=== PATIENT | male | born 2000 | race Caucasian/White ===

== ENCOUNTER → 2018-09-12 18:11 | Emergency (ER) | payer BC, OTHER ==
[~2018-09-12 18:11] MED LIST: Ondansetron ODT TAB* 4 MG PO ONE; Tamsulosin CAP* 0.4 MG PO ONE; oxyCODONE/Acetamin 5/325 MG* TAB PO ONE
[2018-09-12 19:05] LABS: Urine Appearance Cloudy; Urine Bacteria Absent (Absent); Urine Bilirubin Negative (Negative); Urine Blood 3+ (Negative); Urine Color Straw; Urine Glucose Negative (Negative); Urine Ketones Negative (Negative); Urine Nitrite Negative (Negative); Urine Protein Negative (Negative); Urine Red Blood Cell 3+(>10/hpf) (Absent); Urine Squamous Epithelial Cell Present (Absent); Urine Urobilinogen Negative (Negative); Urine White Blood Cell Trace(0-5/hpf) (Absent)
[2018-09-12 19:42] LABS: ABS Basophils 0.1 10^3/ul (0-0.2); ABS Eosinophils 0.3 10^3/ul (0-0.6); ABS Lymphocytes 3.3 10^3/ul (1.0-4.8); ABS Monocytes 0.6 10^3/ul (0-0.8); ABS Neutrophils 5.5 10^3/ul (1.5-7.7); Eosinophil % 3.1 %; Hematocrit 48 % (42-52); Hemoglobin 16.5 g/dL (14.0-18.0); Lymphocyte % 33.8 %; Mean Corpuscular HGB Conc 34 g/dL (31-36); Mean Corpuscular Hemoglobin 29 pg (27-31); Mean Corpuscular Volume 83 fL (80-94); Mean Platelet Volume 8.7 fL (7.4-10.4); Nucleated Red Blood Cells % 0.2; Platelet Count 199 10^3/uL (150-450); Red Blood Count 5.77 10^6 /uL (4.18-5.48); Red Cell Distribution Width 14 % (10.5-15); White Blood Count 9.7 10^3/uL (3.5-10.8)
[2018-09-12 20:00] LABS: Albumin 4.5 g/dL (3.2-5.2); Albumin/Globulin Ratio 1.5 (1-3); BUN/Creatinine Ratio 11.9 (8-20); Calcium 9.7 mg/dL (8.6-10.3); EGFR Non-African American 94.2 (>60); Potassium 4.5 mmol/L (3.5-5.0); Total Bilirubin 0.3 mg/dL (0.2-1.0); Total Protein 7.5 g/dL (6.4-8.9)
--- NOTE | 2018-09-12 21:32 | ED ---
Abdominal Pain/Male - HPI Summary HPI Summary: 18 year old M presenting to [facility] accompanied by mother with a chief complaint of sharp, intermittent right sided flank pain since 09/12/18. The patient rates the pain 8/10 in severity. Symptoms aggravated by nothing. Symptoms alleviated by nothing. Patient reports hematuria and dark urine. Patient denies nausea, vomiting, abdominal pain, dysuria. Patient woke up on 09/08/18 with lower back pain. He treated pain with ibuprofen. He noted dark urine. Patient took ibuprofen 400 mg this morning with no relief. No hx kidney stones. Patient has no past medical history. Mother reports that maternal grandfather had hx kidney stones. Vital signs at triage: HR 94 bpm, BP 135/80, O2 sat 98% - History of Current Complaint Chief Complaint: EDFlankPain Stated Complaint: BACK PAIN/BLOOD IN URINE PER PT Time Seen by Provider: 09/12/18 21:21 Hx Obtained From: Patient, Family/Associate Brand Manager - Mother Onset/Duration: Lasting Days, Still Present Timing: Intermittent Severity Initially: Moderate Severity Currently: Severe Pain Intensity: 8 Pain Scale Used: 0-10 Numeric Location: Flank - right Radiates: No Character: Sharp Aggravating Factor(s): Nothing Alleviating Factor(s): Nothing Associated Signs And Symptoms: Positive: Negative - nausea, vomiting, abdominal pain, dysuria, Other - hematuria and dark urine - Allergies/Home Medications Allergies/Adverse Reactions: Allergies Allergy/AdvReac Type Severity Reaction Status Date / Time No Known Allergies Allergy Verified 09/12/18 18:17 Home Medications: Home Medications Ibuprofen 400 mg PO Q6H PRN 09/12/18 [History Confirmed 09/12/18] PMH/Surg Hx/FS Hx/Imm Hx Previously Healthy: Yes Endocrine/Hematology History: Denies: Hx Anticoagulant Therapy, Hx Blood Disorders, Hx Blood Transfusions, Hx Bone Marrow Disease, Hx Diabetes, Hx Systemic Lupus Erythematosus, Hx Sickle Cell Disease, Hx Thyroid Disease, Hx Anemia, Hx Unexplained Bleeding, Other Endocrine/Hematological Disorders Cardiovascular History: Denies: Hx Aneurysm, Hx Angina, Hx Angioplasty, Hx Atrial Fibrillation, Hx Auto Implanted Cardiovert Defib, Hx Cardiac Arrest, Hx Cardiomegaly, Hx Congenital Heart Disease, Hx Congestive Heart Failure, Hx Coronary Artery Disease, Hx Deep Vein Thrombosis, Hx Embolism, Hx Hypercholesterolemia, Hx Hypotension, Hx Hypertension, Hx Myocardial Infarction, Hx Pacemaker/ICD, Hx Peripheral Vascular Disease, Hx Rheumatic Fever, Hx Syncope, Hx Valvular Heart Disease, Other Cardiovascular Problems/Disorders Respiratory History: Denies: Hx Asthma, Hx Bronchopulmonary Dysplasia, Hx Chronic Bronchitis, Hx Chronic Obstructive Pulmonary Disease (COPD), Hx Cystic Fibrosis, Hx Lung Cancer , Hx Pleural Effusion, Hx Pneumonia, Hx Pulmonary Edema, Hx Pulmonary Embolism, Hx Seasonal Allergies, Hx Sleep Apnea, Other Respiratory Problems/Disorders GI History: Denies: Hx Cirrhosis, Hx Crohn's Disease, Hx Diverticulosis, Hx Gall Bladder Disease, Hx Gastroesophageal Reflux Disease, Hx Gastrointestinal Bleed, Hx Hiatal Hernia, Hx Irritable Bowel, Hx Jaundice, Hx Obstructive Bowel, Hx Ileostomy, Hx Pyloric Stenosis, Hx Ulcer, Hx Urosepsis, Other GI Disorders History: Denies: Hx Acute Renal Failure, Hx Benign Prostatic Hyperplasia, Hx Chronic Renal Failure, Hx Dialysis, Hx Kidney Infection, Hx Kidney Stones, Hx Renal Disease, Other Problems/Disorders Sensory History: Denies: Hx Cataracts, Hx Contacts or Glasses, Hx Eye Injury, Hx Eye Prosthesis, Hx Glaucoma, Hx Legally Blind, Hx Macular Degeneration, Hx Vision Problem, Hx Deafness, Hx Hearing Aid, Hx Hearing Problem, Other Sensory Impairments Opthamlomology History: Denies: Hx Cataracts, Hx Contacts or Glasses, Hx Eye Injury, Hx Eye Prosthesis, Hx Glaucoma, Hx Legally Blind, Hx Macular Degeneration, Hx Vision Problem, Other Sensory Impairments Psychiatric History: Denies: Hx Anxiety, Hx Attention Deficit Hyperactivity Disorder, Hx Autism, Hx Eating Disorder, Hx Oppositional [place] Disorder, Hx Depression, Hx Panic Disorder, Hx Post Traumatic Stress Disorder, Hx Inpatient Treatment, Hx Community Mental Health Tx, Hx Schizophrenia, Hx Bipolar Disorder, Hx Suicide Attempt, Hx of Violent Episodes Against Others, Hx Substance Abuse, Other Psychiatric Issues/Disorders - Surgical History Surgery Procedure, Year, and Place: tonsils Infectious Disease History: No Infectious Disease History: Denies: Hx of Known/Suspected MRSA, Traveled Outside the US in Last 30 Days - Family History Known Family History: Positive: Other - Maternal grandfather has hx kidney stones - Social History Lives: With Family Alcohol Use: None Hx Substance Use: No Substance Use Type: Reports: None Hx Tobacco Use: No Smoking Status (MU): Never Smoked Tobacco Have You Smoked in the Last Year: No Review of Systems Constitutional: Negative Cardiovascular: Negative Respiratory: Negative Negative: Abdominal Pain, Vomiting, Nausea Positive: flank pain - right, hematuria, other - dark urine. Negative: dysuria Musculoskeletal: Negative Skin: Negative Neurological: Negative Psychological: Normal All Other Systems Reviewed And Are Negative: Yes Physical Exam - Summary Physical Exam Summary: Appearance: Well-appearing, moderate pain distress, well-nourished Skin: Warm, color reflects adequate perfusion, dry Head: Normal Head/Face inspection, atraumatic Eyes: Conjunctiva clear ENT: Normal inspection Neck: Supple, no nodes, no JVD Respiratory: Lungs clear, normal breath sounds, no respiratory distress Cardio: RRR, No murmur, pulses normal, brisk capillary refill Abdomen: Soft, nontender. Right flank pain, right CVAT Bowel sounds: Present Musculoskeletal: Strength Intact/ROM intact, no calf tenderness, no edema. Psychological: Normal Neuro: Alert, muscle tone normal, no focal deficit Triage Information Reviewed: Yes Vital Signs On Initial Exam: Initial Vitals Temp Pulse Resp BP Pulse Ox 98.9 F 94 16 135/80 98 09/12/18 18:13 09/12/18 18:13 09/12/18 18:13 09/12/18 18:13 09/12/18 18:13 Vital Signs Reviewed: Yes Diagnostics - Vital Signs Vital Signs Temp Pulse Resp BP Pulse Ox 09/12/18 20:16 98.8 F 79 16 132/80 99 09/12/18 20:15 98.8 F 79 16 132/80 99 09/12/18 18:13 98.9 F 94 16 135/80 98 - Laboratory Lab Results: Lab Results 09/12/18 09/12/18 09/12/18 Range/Units 18:41 19:34 19:34 WBC 9.7 (3.5-10.8) 10^3/uL RBC 5.77 H (4.18-5.48) 10^6 /uL Hgb 16.5 (14.0-18.0) g/dL Hct 48 (42-52) % MCV 83 (80-94) fL MCH 29 (27-31) pg MCHC 34 (31-36) g/dL RDW 14 (10.5-15) % Plt Count 199 (150-450) 10^3/uL MPV 8.7 (7.4-10.4) fL Neut % (Auto) 56.8 % Lymph % (Auto) 33.8 % [place] % (Auto) 5.7 % Eos % (Auto) 3.1 % Baso % (Auto) 0.6 % Absolute Neuts (auto) 5.5 (1.5-7.7) 10^3/ul Absolute Lymphs (auto) 3.3 (1.0-4.8) 10^3/ul Absolute Monos (auto) 0.6 (0-0.8) 10^3/ul Absolute Eos (auto) 0.3 (0-0.6) 10^3/ul Absolute Basos (auto) 0.1 (0-0.2) 10^3/ul Absolute Nucleated RBC 0.0 10^3/ul Nucleated RBC % 0.2 Sodium 137 (135-145) mmol/L Potassium 4.5 (3.5-5.0) mmol/L Chloride 103 (101-111) mmol/L Carbon Dioxide 30 (22-32) mmol/L Anion Gap 4 (2-11) mmol/L BUN 12 (6-24) mg/dL Creatinine 1.01 (0.67-1.17) mg/dL Est GFR ( Amer) 114.0 (>60) Est GFR (Non-Af Amer) 94.2 (>60) BUN/Creatinine Ratio 11.9 (8-20) Glucose 93 (70-100) mg/dL Calcium 9.7 (8.6-10.3) mg/dL Total Bilirubin 0.30 (0.2-1.0) mg/dL AST 51 H (13-39) U/L ALT 99 H (7-52) U/L Alkaline Phosphatase 81 (34-104) U/L Total Protein 7.5 (6.4-8.9) g/dL Albumin 4.5 (3.2-5.2) g/dL Globulin 3.0 (2-4) g/dL Albumin/Globulin Ratio 1.5 (1-3) Urine Color Straw Urine Appearance Cloudy Urine pH 7.0 (5-9) Ur Specific [place] 1.010 (1.010-1.030) Urine Protein Negative (Negative) Urine Ketones Negative (Negative) Urine Blood 3+ A (Negative) Urine Nitrate Negative (Negative) Urine Bilirubin Negative (Negative) Urine Urobilinogen Negative (Negative) Ur Leukocyte Esterase Negative (Negative) Urine WBC (Auto) Trace(0-5/hpf) (Absent) Urine RBC (Auto) 3+(>10/hpf) A (Absent) Ur Squamous Epith Cells Present A (Absent) Urine Bacteria Absent (Absent) Urine Glucose Negative (Negative) Result Diagrams: 09/12/18 19:34 09/12/18 19:34 Lab Statement: Any lab studies that have been ordered have been reviewed, and results considered in the medical decision making process. - CT Abd/Pel CT Interpretation Completed By: Radiologist Summary of CT Findings: 1. Minimally obstructing 7 mm calculus right UPJ. 2. Mild hepatic steatosis (5-14% fat fraction). ED physician has reviewed this report. Abdominal Pain Male Course/Dx - Course Course Of Treatment: 18 yo M with right flank pain, gross hematuria, no prior hx kidney stones, dx with right 7mm stone minimally obstructing at UPJ. Nurses notes reviewed. CT Abd/Pel shows 1. Minimally obstructing 7 mm calculus right UPJ. 2. Mild hepatic steatosis (5-14% fat fraction). Bloodwork is unremarkable except for slightly elevated AST (51) and ALT (99), unrelated to kidney stone dx , may be related to hepatosteatosis. In ED course, patient was given Percocet, Zofran, and Flomax with relief. Spoke with Dr. Wang, urology, who agrees with medications and discharge plan, but if patient has worsening pain then he must come back to ED. If patient does not have to return to ED, then patient can be seen in office on 09/15/18. Patient feels better and would like to go home. Patient will be discharged home with prescription for Zofran, Percocet, and Flomax. He was instructed to follow up with the [facility] in [address] Wang in 3 days. Patient was instructed to return to ED for new or worsening symptoms. Patient understands and is agreeable to discharge plan. - Diagnoses Differential Diagnosis/HQI/PQRI: Appendicitis, Gall Bladder Disease, Pancreatitis, Renal Colic, Ureteral Stone, Urinary Tract Infection Provider Diagnoses: Renal calculus, right, Gross hematuria - Provider Notifications Discussed Care Of Patient With: Justin Wang Time Discussed With Above Provider: 21:34 Instructed by Provider To: Other - Dr. Wang, urology, who agrees with medications and discharge plan, but if patient has worsening pain then he must come back to ED. If patient does not have to return to ED, then patient can be seen in office on 09/15/18. Discharge - Sign-Out/Discharge Documenting (check all that apply): Patient Departure - Discharge Patient Received Moderate/Deep Sedation with Procedure: No - Discharge Plan Condition: Stable Disposition: HOME Prescriptions: Ondansetron ODT TAB* [Zofran 4 MG Odt TAB*] 4 mg PO Q8H PRN #20 tab.odt PRN Reason: Nausea oxyCODONE/Acetamin 5/325 MG* [Percocet 5/325 TAB*] 1 tab PO Q6H PRN #20 tab MDD 4 PRN Reason: Pain Tamsulosin CAP* [Flomax CAP*] 0.4 mg PO DAILY #20 cap Patient Education Materials: Kidney Stones (ED), Hematuria (ED) Forms: *Work Release Referrals: [facility] [Outside] - 2 Days Justin Wang MD [Medical Doctor] - 3 Days Additional Instructions: We spoke to Dr. Wang the urologist, kidney stone specialist, rosemary. He states that you may go home with pain medication and a medication called tamsulosin which sometimes helps kidney stones pass. You should drink plenty of fluids and strain your urine. If your pain is uncontrolled, if you have a fever, or you are vomiting this weekend, you need to return directly to the [facility] ER. If you are well over the weekend continue taking your medication, and call Dr. Wang's office on Saturday to make an appointment to be seen. You may need a procedure to help this kidney stone pass, but Dr. Wang will asses this further as your course progresses. Return to the emergency department for new or worsening symptoms. - Billing Disposition and Condition Condition: STABLE Disposition: Home - Attestation Statements Document Initiated by Jeyson: Yes Documenting Scribe: Alexandra Lomeli Provider For Whom Jeyson is Documenting (Include Credential): Vivian Stone MD Scribe Attestation: Alexandra Zepeda, scribed for Vivian Stone MD on 09/14/18 at 8107. Scribe Documentation Reviewed: Yes Provider Attestation: The documentation as recorded by the Alexandra horton accurately reflects the service I personally performed and the decisions made by me, Vivian Stone MD Status of Jeyson Document: Viewed
[2018-09-12 21:56] VITALS: BP 129/76
== END | disposition home or self-care (01) ==
LOC: ED 18:11
DX: N20.0 Calculus of kidney (principal); N20.1 Calculus of ureter; K76.0 Fatty (change of) liver, not elsewhere classified; R31.0 Gross hematuria
CPT/HCPCS: 36415; 74176; 80053; 81003; 81015; 85025; 87086; 99282; A9270-GY

== ENCOUNTER 2018-09-25 05:54 | Emergency (ER) | payer BC ==
[2018-09-25] MEDS ORDERED: Ondansetron INJ* 2 MG/ML VIAL IV ONE (06:10)
[2018-09-25] MEDS ORDERED: NS 0.9% 1000 ML** 1,000 ML IV ONE (06:10)
[2018-09-25] MEDS ORDERED: Ketorolac INJ* 30 MG/ML 1 ML VIAL IV PUSH ONE (06:10)
--- NOTE | 2018-09-25 06:15 | ED ---
Back Pain - HPI Summary HPI Summary: Pt. is a 18 y.o male who presents to the ER for worsening right flank pain with a known 7mm ureteral calculus. Pt. seen in ED 09/12/18 with right flank pain and dx with stone. Pt. has been taking percocet and flomax. Pt. is following with urology, Dr. Wang. Pt. states that Dr. Wang plans on stent placement once stone moves lower. Pt. states he has been doing well at home with pain until today. Pain today is 7/10. Pt. took percocet [employer]. Pt. denies fever, chills , dysuria, vomiting. No other past medical hx. Sxs are moderate in severity. No current modifying factors. - History of Current Complaint Chief Complaint: EDFlankPain Stated Complaint: FLANK PAIN PER PT Time Seen by Provider: 09/25/18 06:02 Hx Obtained From: Patient Pain Intensity: 7 - Allergies/Home Medications Allergies/Adverse Reactions: Allergies Allergy/AdvReac Type Severity Reaction Status Date / Time No Known Allergies Allergy Verified 09/25/18 06:00 PMH/Surg Hx/FS Hx/Imm Hx Previously Healthy: Yes Endocrine/Hematology History: Denies: Hx Anticoagulant Therapy, Hx Blood Disorders, Hx Blood Transfusions, Hx Bone Marrow Disease, Hx Diabetes, Hx Systemic Lupus Erythematosus, Hx Sickle Cell Disease, Hx Thyroid Disease, Hx Anemia, Hx Unexplained Bleeding, Other Endocrine/Hematological Disorders Cardiovascular History: Denies: Hx Aneurysm, Hx Angina, Hx Angioplasty, Hx Atrial Fibrillation, Hx Auto Implanted Cardiovert Defib, Hx Cardiac Arrest, Hx Cardiomegaly, Hx Congenital Heart Disease, Hx Congestive Heart Failure, Hx Coronary Artery Disease, Hx Deep Vein Thrombosis, Hx Embolism, Hx Hypercholesterolemia, Hx Hypotension, Hx Hypertension, Hx Myocardial Infarction, Hx Pacemaker/ICD, Hx Peripheral Vascular Disease, Hx Rheumatic Fever, Hx Syncope, Hx Valvular Heart Disease, Other Cardiovascular Problems/Disorders Respiratory History: Denies: Hx Asthma, Hx Bronchopulmonary Dysplasia, Hx Chronic Bronchitis, Hx Chronic Obstructive Pulmonary Disease (COPD), Hx Cystic Fibrosis, Hx Lung Cancer , Hx Pleural Effusion, Hx Pneumonia, Hx Pulmonary Edema, Hx Pulmonary Embolism, Hx Seasonal Allergies, Hx Sleep Apnea, Other Respiratory Problems/Disorders GI History: Denies: Hx Cirrhosis, Hx Crohn's Disease, Hx Diverticulosis, Hx Gall Bladder Disease, Hx Gastroesophageal Reflux Disease, Hx Gastrointestinal Bleed, Hx Hiatal Hernia, Hx Irritable Bowel, Hx Jaundice, Hx Obstructive Bowel, Hx Ileostomy, Hx Pyloric Stenosis, Hx Ulcer, Hx Urosepsis, Other GI Disorders History: Denies: Hx Acute Renal Failure, Hx Benign Prostatic Hyperplasia, Hx Chronic Renal Failure, Hx Dialysis, Hx Kidney Infection, Hx Kidney Stones, Hx Renal Disease, Other Problems/Disorders Sensory History: Denies: Hx Cataracts, Hx Contacts or Glasses, Hx Eye Injury, Hx Eye Prosthesis, Hx Glaucoma, Hx Legally Blind, Hx Macular Degeneration, Hx Vision Problem, Hx Deafness, Hx Hearing Aid, Hx Hearing Problem, Other Sensory Impairments Opthamlomology History: Denies: Hx Cataracts, Hx Contacts or Glasses, Hx Eye Injury, Hx Eye Prosthesis, Hx Glaucoma, Hx Legally Blind, Hx Macular Degeneration, Hx Vision Problem, Other Sensory Impairments Psychiatric History: Denies: Hx Anxiety, Hx Attention Deficit Hyperactivity Disorder, Hx Autism, Hx Eating Disorder, Hx Oppositional [place] Disorder, Hx Depression, Hx Panic Disorder, Hx Post Traumatic Stress Disorder, Hx Inpatient Treatment, Hx Community Mental Health Tx, Hx Schizophrenia, Hx Bipolar Disorder, Hx Suicide Attempt, Hx of Violent Episodes Against Others, Hx Substance Abuse, Other Psychiatric Issues/Disorders - Surgical History Surgery Procedure, Year, and Place: tonsils - Immunization History Date of Tetanus Vaccine: 2 YEARS AGO Infectious Disease History: No Infectious Disease History: Denies: Hx of Known/Suspected MRSA, Traveled Outside the [place] in Last 30 Days - Family History Known Family History: Positive: None, Other - Maternal grandfather has hx kidney stones, Non-Contributory - Social History Occupation: Unemployed Lives: With Family Alcohol Use: None Hx Substance Use: No Substance Use Type: Reports: None Hx Tobacco Use: No Smoking Status (MU): Never Smoked Tobacco Have You Smoked in the Last Year: No Review of Systems Constitutional: Negative Negative: Fever, Chills Positive: Abdominal Pain. Negative: Vomiting, Diarrhea, Nausea Positive: flank pain. Negative: dysuria All Other Systems Reviewed And Are Negative: Yes Physical Exam Triage Information Reviewed: Yes Vital Signs On Initial Exam: Initial Vitals Temp Pulse Resp BP Pulse Ox 98 F 75 16 121/63 99 09/25/18 05:56 09/25/18 05:56 09/25/18 05:56 09/25/18 05:56 09/25/18 05:56 Vital Signs Reviewed: Yes Appearance: Positive: Well-Appearing - Pt. sitting up in bed in NAD. Appears uncomfortable but nontoxic. Mother present. Skin: Positive: Warm, Dry Head/Face: Positive: Normal Head/Face Inspection Eyes: Positive: Normal, EOMI, RONEY Neck: Positive: Supple Respiratory/Lung Sounds: Positive: Clear to Auscultation, Breath Sounds Present Cardiovascular: Positive: Normal, RRR Abdomen Description: Positive: Other: - Mild tenderness RLQ without rebound or guarding. Right CVA tenderness. Neurological: Positive: Normal, CN Intact II-III Psychiatric: Positive: Affect/Mood Appropriate Diagnostics - Vital Signs Vital Signs Temp Pulse Resp BP Pulse Ox 09/25/18 05:56 98 F 75 16 121/63 99 - Laboratory Result Diagrams: 09/25/18 06:27 09/25/18 06:27 Lab Statement: Any lab studies that have been ordered have been reviewed, and results considered in the medical decision making process. Back Pain Course/Dx - Course Course Of Treatment: Pt. presenting for increased pain with known right urolithiasis. He is afebrile. Pt. given a liter of NSS and toradol. Labs and u/ a negative other than RBCs. Case discussed with oncall urology, Dr. Peoples, who recommended repeat KUB. KUB shows 5mm proximal stone. Pt. is pain free in ER. Dr. Peoples reviewed xray and feels pt. may be able to pass stone. He recommends out pt. f.u vs stent placement today and lithotripsy 10/06 when machine is at [place]. Discussed options with pt. and he would like to go home. He has an apt. with Dr. Wang. Pt. states he has pain medication as home. To increase fluids. To return to ER if sxs change or worsen. Pt. is agreeable with plan. - Diagnoses Differential Diagnosis/HQI/PQRI: Positive: Renal Colic Provider Diagnoses: Urolithiasis Discharge - Sign-Out/Discharge Documenting (check all that apply): Patient Departure Patient Received Moderate/Deep Sedation with Procedure: No - Discharge Plan Condition: Improved Disposition: HOME Patient Education Materials: Kidney Stones (ED) Referrals: Justin Wang MD [Medical Doctor] - Additional Instructions: Follow up with urology on Saturday as scheduled Increase fluids Pain medication as directed Return to ER for uncontrollable pain, fever, vomiting, or if concerned - Billing Disposition and Condition Condition: IMPROVED Disposition: Home - Attestation Statements Provider Attestation: pt seen by midlevel provider independently, based on their assessment, it was not necessary to present the case to me but I was available for consultation. I did not form a physician-patient relationship with the patient. The chart however, has been reviewed.
[2018-09-25 06:41] LABS: Urine Appearance Cloudy; Urine Bacteria 1+ (Absent); Urine Bilirubin Negative (Negative); Urine Blood 3+ (Negative); Urine Color Amber; Urine Glucose Negative (Negative); Urine Ketones Trace (Negative); Urine Nitrite Negative (Negative); Urine Protein 1+(30 mg/dL) (Negative); Urine Red Blood Cell 3+(>10/hpf) (Absent); Urine Specific Gravity 1.034 (1.010-1.030); Urine Urobilinogen Negative (Negative); Urine White Blood Cell Trace(0-5/hpf) (Absent)
[2018-09-25 06:41] LABS: ABS Basophils 0.1 10^3/ul (0-0.2); ABS Eosinophils 0.2 10^3/ul (0-0.6); ABS Lymphocytes 1.9 10^3/ul (1.0-4.8); ABS Monocytes 0.6 10^3/ul (0-0.8); ABS Neutrophils 5.7 10^3/ul (1.5-7.7); Eosinophil % 2.7 %; Hematocrit 45 % (42-52); Hemoglobin 15.6 g/dL (14.0-18.0); Lymphocyte % 22.5 %; Mean Corpuscular HGB Conc 35 g/dL (31-36); Mean Corpuscular Hemoglobin 29 pg (27-31); Mean Corpuscular Volume 82 fL (80-94); Mean Platelet Volume 8.6 fL (7.4-10.4); Nucleated Red Blood Cells % 0.1; Platelet Count 168 10^3/uL (150-450); Red Blood Count 5.45 10^6 /uL (4.18-5.48); Red Cell Distribution Width 13 % (10-15); White Blood Count 8.5 10^3/uL (3.5-10.8)
[2018-09-25 07:00] LABS: Albumin 4.3 g/dL (3.2-5.2); Albumin/Globulin Ratio 1.7 (1-3); BUN/Creatinine Ratio 21.2 (8-20); C Reactive Protein 2.74 mg/L (<8.01); Calcium 9.2 mg/dL (8.6-10.3); EGFR African American 116.6 (>60); EGFR Non-African American 96.4 (>60); Globulin 2.5 g/dL (2-4); Potassium 3.8 mmol/L (3.5-5.0); Total Bilirubin 0.6 mg/dL (0.2-1.0); Total Protein 6.8 g/dL (6.4-8.9)
[2018-09-25 09:02] VITALS: BP 109/71
== END 2018-09-25 09:02 | disposition home or self-care (01) ==
LOC: ED 05:54
DX: N20.9 Urinary calculus, unspecified (principal)
CPT/HCPCS: 36415; 74018; 80053; 81003; 81015; 85025; 86140; 87086; 96361; 99283; J1885; J2405

== ENCOUNTER → 2018-12-10 | Day surgery (SDC) | payer BC ==
--- NOTE | 2018-12-08 18:52 | HP ---
HISTORY AND PHYSICAL: DATE OF PLANNED ADMISSION AND SURGERY: 12/10/18 HISTORY OF PRESENT ILLNESS: Mr. Moya is a 18-year-old white male who is admitted with recurrent right renal colic and a 6 mm calculus in the mid right ureter for cystoscopy, right ureteroscopy, laser lithotripsy and right urethral stent insertion. Mr. Moya presented to the emergency room 3 months ago with symptoms of right renal colic. At that time, he had a non-contrast CT of the abdomen and pelvis, which showed a 6 mm to 7 mm calculus at the right ureteropelvic junction. His urine was not infected. He was managed conservatively with pain medication and was discharged home, doing well. The patient was then evaluated in my office and a KUB was obtained showing a 6 mm calculus along the course of the proximal right ureter. Because the patient was not having any symptoms he was managed conservatively. He presented to the emergency room a week prior to this admission with recurrent right renal colic. He did not have any fever or chills. The CT was repeated and it showed that the calculus had moved to just distal to the mid right ureter. He was managed conservatively with pain medications and was referred back to my office. He has been having on and off episodes of pain but that had been controllable with oral pain medications. He had renal ultrasound in the office which confirmed the presence of a 6 mm calculus in the right ureter, just distal to the mid course with associated mild hydronephrosis. Because of the above history, the stone has not passed in 3 months and having had recurrent episodes of pain and 2 visits to the emergency room; the patient is taken to the operating room for endoscopic stone extraction. Past history is otherwise negative. No history of any renal diseases or calculi. PAST MEDICAL HISTORY AND SYSTEM REVIEW: He is in good health. He is on no chronic medications and denies any allergies to medications. He denies any cardiac or pulmonary diseases or symptoms. PERSONAL HISTORY: He is a nonsmoker. Denies alcohol or drug intake. He works in [employer]. FAMILY HISTORY: Negative. PHYSICAL EXAMINATION GENERAL: He is a pleasant and healthy looking white male who is in no pain. VITAL SIGNS: Blood pressure 120/80, pulse of 72, temperature 98.5. HEART: Regular and rhythmic. No murmurs. LUNGS: Clear. ABDOMEN: Soft. There is mild right CVA tenderness. Abdominal exam is normal. IMPRESSION: Recurrent episodes of right renal colic caused by a 6 mm calculus at the level of the [id number] third of the right ureter with recurrent symptoms for 3 months. PLAN: Considering the above history. Plan is for right ureteroscopy, laser lithotripsy and right ureteral stent insertion. I discussed the above plans in detail with the patient. Some of the potential complications including infection, hematuria, incidence of ureteral stricture. All his questions were answered. The patient was instructed to very carefully strain his urine until the day of surgery and to report if the stone has passed. [id number] #: [id number] MTDD
[~2018-12-10] MED LIST changes: +Buffered Lidocaine 1% SYRIN* 1 ML/SYRINGE INTRADERM ONE; +Dexamethasone IV* 4 MG/ML 1 ML (4 MG) IV SLOW PU ONE; +Dexamethasone IV* 4 MG/ML 1 ML (4 MG) ONE; +Famotidine IV* 10 MG/ML 2 ML (20 mg) IV ONE; +Famotidine IV* 10 MG/ML 2 ML (20 mg) ONE; +Iohexol 180 (CONTRAST) 10 ML SDV IV ONE; +Lactated Ringers 1000 ML Bag* 1,000 ML IV SCH; +Midazolam* 1 MG/ML 2 ML VIAL (2 MG) ONE; +Ondansetron INJ* 2 MG/ML VIAL ONE; -Ondansetron ODT TAB* 4 MG PO ONE; +Propofol* 10 MG/ML 20 ML BTL ONE; -Tamsulosin CAP* 0.4 MG PO ONE; +cefTRIAXone(*) 2 GM ADDV.VIAL IVPB ONE; +fentaNYL* 50 MCG/ML 2 ML VIAL (100 MCG VIAL) ONE; -oxyCODONE/Acetamin 5/325 MG* TAB PO ONE
[2018-12-10 12:51] VITALS: BP 128/74
--- NOTE | 2018-12-10 13:52 | OP ---
DATE OF OPERATION: 12/10/18 - [facility] DATE OF : 89 SURGEON: Rob Peoples MD. ANESTHESIOLOGIST: Dr. Diop. ANESTHESIA: General. PRE-OP DIAGNOSES: 1. Right hydronephrosis. 2. Calculus right ureter. POST-OP DIAGNOSES: 1. Right hydronephrosis. 2. Calculus right ureter. OPERATIVE PROCEDURE: Cystoscopy, right retrograde pyelogram, right ureteroscopy , laser lithotripsy of right ureteral calculus, removal of calculus fragments, and right stent insertion. COMPLICATIONS: None. STENT USED: 7-Mozambican stent right ureter. INDICATIONS: Errol Moya is a 18-year-old gentleman who has had episodic right flank pain secondary to a calculus in the right ureter. This has been going on for several weeks, and he has now been brought in for right ureteroscopy. FINDINGS: Approximately 8-mm calculus impacted at the junction of mid-to- distal right ureter with mild narrowing and significant edema and inflammation at the site of impaction. POSTOPERATIVE CONDITION: Stable. DESCRIPTION OF PROCEDURE: After induction of general anesthesia, the patient was placed in the dorsal lithotomy position. Sequential compression devices were in place and functioning. Initial cystoscopy revealed a normal-appearing urethra and a normal-appearing bladder. A guidewire was introduced into the right ureter. Retrograde pyelogram revealed fullness of the right collecting system and proximal ureter. A 6-Mozambican semirigid ureteroscope was introduced and advanced under direct vision. About 8 to 10 cm above the ureterovesical junction, at the junction of the [id number] right ureter (closer to midureter ), an approximately 8-mm calculus was noted to be impacted with surrounding edema and inflammation. The ureter was fairly narrow at the site of impaction and whether this was secondary to the calculus having been in this position for a while or whether this was an area of narrowing where the calculus did get hung up is hard to tell. Using a 550 micron holmium laser, the stone was successfully broken up into multiple fragments and all of the sizable fragments were retrieved. The ureteroscope was advanced carefully into the proximal ureter to make sure there were no sizable fragments and none were noted. Retrograde pyelogram was repeated at the end of the procedure to make sure there was no extravasation and none was noted. A 7-Mozambican stent was introduced and positioned under fluoroscopy with good proximal and distal positioning obtained. The bladder was emptied. The patient tolerated the procedure satisfactorily and was transferred back to the recovery area in stable condition. [id number] #: [id number]
== END | disposition home or self-care (01) ==
LOC: OR 10:27
PROVIDERS: ATTEND Urology
DX: N13.2 Hydronephrosis with renal and ureteral calculous obstruction (principal); Z68.52 Body mass index [BMI] pediatric, 5th percentile to less than 85th percentile for age; Z72.0 Tobacco use
CPT/HCPCS: 74420; 82365; 88300; C1876; J0696; J1100; J2250; J2405; J2704; J3010